=== PATIENT | female | born 1975 | race Two or more races ===

== ENCOUNTER 2019-03-02 11:27 | Day surgery (SDC) | payer BC ==
[~2019-03-02 11:27] MED LIST: Lactated Ringers 1,000 ML IV SCH
--- NOTE | 2019-03-02 12:42 | PCM.PREANE ---
Preanesthetic Assessment - Anesthesia/Transfusion/Family Hx Anesthesia History: Prior Anesthesia Without Reaction Family History of Anesthesia Reaction: No Transfusion History: Prior Transfusion Without Reaction - Review of Systems General: No Symptoms Pulmonary: No Symptoms Cardiovascular: No Symptoms Gastrointestinal: No Symptoms Neurological: No Symptoms Other: Reports: None - Physical Assessment O2 Sat by Pulse Oximetry: 98 Respiratory Rate: 16 Vital Signs: Last Vital Signs Temp 98.8 F 03/02/19 12:36 Pulse 89 03/02/19 12:36 Resp 16 03/02/19 12:36 BP 108/69 03/02/19 12:36 Pulse Ox 98 03/02/19 12:36 Height: 5 ft 2 in Weight: 65.317 kg ASA Class: 2 Mental Status: Alert & Oriented x3 Airway Class: Mallampati = 2 Dentition: Reports: Normal Dentition ROM/Head Extension: Full Lungs: Clear to Auscultation, Normal Respiratory Effort Cardiovascular: Regular Rate, Regular Rhythm - Lab Values: Laboratory Last Values Urine HCG, Qual NEGATIVE (NEGATIVE) 03/02/19 11:50 - Allergies Allergies/Adverse Reactions: Allergies Allergy/AdvReac Type Severity Reaction Status Date / Time No Known Allergies Allergy Verified 03/02/19 12:31 - Blood Blood Available: No - Anesthesia Plan Pre-Op Medication Ordered: None - Acknowledgements Anesthesia Type Planned: General Anesthesia Pt an Appropriate Candidate for the Planned Anesthesia: Yes Alternatives and Risks of Anesthesia Discussed w Pt/Guardian: Yes Pt/Guardian Understands and Agrees with Anesthesia Plan: Yes Additional Comments: anes prob list: thrombophilia, gerd, IBS, migraine, asthma PLAN: tiva PreAnesthesia Questionnaire HEENT History: Reports: Other (See Below) Other HEENT History: has some trouble with night vision Cardiovascular History: Reports: Blood Clots/VTE/DVT Other Cardiovascular History: had a "small blood clot" in her right leg while on fertility drugs. Took anticoagulants for 3 weeks. Respiratory History: Reports: Asthma Other Respiratory History: has not used inhaler for 1 year Gastrointestinal History: Reports: PUD Genitourinary History: Reports: UTI, Recurrent Other Genitourinary History: last UTI was 4 months ago Neurological History: Reports: Concussion Hematologic History: Reports: Anemia - Past Surgical History GI Surgical History: Reports: Appendectomy, Colonoscopy Female Surgical History: Reports: Oophorectomy Other Female Surgeries/Procedures: right oopherectomy for ovarian cyst - SUBSTANCE USE Smoking Status *Q: Never Smoker Recreational Drug Use History: No - HOME MEDS Home Medications: Home Meds Albuterol [Ventolin HFA] 1 puff INH ASDIRECTED PRN 02/24/19 [History] Gas X With Maalox 1 tab PO ASDIRECTED PRN 02/24/19 [History] Hydrocodone/Acetaminophen [Hydrocodon-Acetaminophen 5-325] 1 tab PO ASDIRECTED PRN 02/24/19 [History] Ibuprofen 400 mg PO ASDIRECTED PRN 02/24/19 [History] - CURRENT (IN HOUSE) MEDS Current Meds: Current Medications Lactated Ringer's (Ringers, Lactated) 1,000 mls @ 125 mls/hr IV ASDIRECTED JOSE Last Admin: 03/02/19 12:31 Dose: 125 mls/hr
[2019-03-02] MEDS ORDERED: Propofol 200 MG/20 ML SDV ONE (13:45)
--- NOTE | 2019-03-02 14:23 | PCM.OPNOTE ---
- General Post-Op/Procedure Note Date of Surgery/Procedure: 03/02/19 Operative Procedure(s): Colonoscopy Pre Op Diagnosis: Rectal bleeding Post-Op Diagnosis: Mild meyer colonic diverticulosis Anesthesia Technique: MAC (ASA II) Primary Surgeon: Dominik Ivan Condition: Good Free Text/Narrative:: DICTATION [id number] CPT CODE 52794
[2019-03-02] MEDS ORDERED: Lactated Ringers 1,000 ML IV SCH (14:30)
--- NOTE | 2019-03-02 15:22 | PCM.POSTAN ---
POST ANESTHESIA ASSESSMENT - MENTAL STATUS Mental Status: Alert, Oriented - RESPIRATORY Respiratory Status: Respiratory Rate WNL, Airway Patent, O2 Saturation Stable - CARDIOVASCULAR CV Status: Pulse Rate WNL, Blood Pressure Stable - GASTROINTESTINAL GI Status: No Symptoms - PAIN Free Text/Narrative:: crampy abd pain - POST OP HYDRATION Hydration Status: Adequate & Stable
[2019-03-02 15:39] VITALS: BP 121/81
--- NOTE | 2019-03-02 15:44 | PCM48HPAN ---
Post Anesthesia Note - EVALUATION WITHIN 48HRS OF ANESTHETIC Vital Signs in Normal Range: Yes Patient Participated in Evaluation: Yes Respiratory Function Stable: Yes Airway Patent: Yes Cardiovascular Function Stable: Yes Hydration Status Stable: Yes Pain Control Satisfactory: Yes Nausea and Vomiting Control Satisfactory: Yes Mental Status Recovered: Yes Pulse Rate: 80 SaO2: 97 Resp Rate: 16
--- NOTE | 2019-03-03 08:40 | OR ---
SURGEON: Dominik Ivan M.D. DATE OF PROCEDURE: 03/02/2019 OPERATION PERFORMED: Colonoscopy. ANESTHESIA: MAC. ASA CLASSIFICATION: II. PREOPERATIVE DIAGNOSIS: Rectal bleeding. POSTOPERATIVE DIAGNOSIS: Pancolonic diverticulosis. DESCRIPTION OF PROCEDURE: The patient was taken to the endoscopy room and positioned on the endoscopy table in the left lateral decubitus position. Time-out was called for appropriate identification of the patient and procedure. Monitored anesthesia care was provided. The colonoscope was inserted into the rectum and advanced with minimal difficulty to the cecum, where the colonoscope was retroflexed to visualize the ascending colon from below. The colonoscope was then straightened and slowly withdrawn. Scattered diverticula are noted throughout the entire length of the colon. The cecum, ascending colon, hepatic flexure, transverse colon, splenic flexure, descending colon, sigmoid colon, and rectum were very well visualized. No tumors, polyps, or angiodysplastic changes were noted. There was no evidence of inflammatory bowel disease. Once the colonoscope was withdrawn to the rectum, it was retroflexed to visualize the anal orifice from above. Again, no tumors or polyps were seen, and there are no acute hemorrhoidal changes. The colonoscope was then straightened, the rectum aspirated, and colonoscope removed. The patient tolerated the procedure well and was taken to recovery room in stable condition. CHARLENE MCDONOUGH /[id number]
== END 2019-03-02 15:55 | disposition home or self-care (01) ==
LOC: MW.SDS 11:27
PROVIDERS: ATTEND Surgery
DX: K57.30 Diverticulosis of large intestine without perforation or abscess without bleeding (principal); K80.20 Calculus of gallbladder without cholecystitis without obstruction; J45.909 Unspecified asthma, uncomplicated; Z87.19 Personal history of other diseases of the digestive system; Z79.899 Other long term (current) drug therapy; Z98.890 Other specified postprocedural states
CPT/HCPCS: 45378; 81025; J2001; J2704; J7120

== ENCOUNTER 2019-04-10 07:03 | Day surgery (SDC) | payer BC ==
[~2019-04-10 07:03] MED LIST changes: +cefOXitin 2 GM in Premix Bag 1 BAG IV ONE
[2019-04-10] MEDS ORDERED: Bupivacaine 0.5% 10 ML SDV ONE (07:21)
[2019-04-10] MEDS ORDERED: ceFAZolin 1 GM Vial ONE ×2 (07:21→13:38)
[2019-04-10] MEDS ORDERED: fentaNYL 250 MCG/5 ML SDV ONE (07:58)
[2019-04-10] MEDS ORDERED: Rocuronium 100 MG/10 ML Syringe ONE (07:58)
[2019-04-10] MEDS ORDERED: Propofol 200 MG/20 ML SDV ONE (07:58)
[2019-04-10] MEDS ORDERED: Lidocaine 2% 5 ML SDV ONE (07:58)
[2019-04-10] MEDS ORDERED: Scopolamine 1.5 MG Transdermal Patch TRDERM PRN (08:09)
[2019-04-10] MEDS ORDERED: Ondansetron 4 MG/2 ML SDV IVPUSH ONE (08:10)
--- NOTE | 2019-04-10 08:13 | PCM.PREANE ---
Preanesthetic Assessment - Anesthesia/Transfusion/Family Hx Anesthesia History: Prior Anesthesia Without Reaction Family History of Anesthesia Reaction: No Transfusion History: Prior Transfusion Without Reaction Intubation History: Unknown - Review of Systems General: No Symptoms Pulmonary: No Symptoms Cardiovascular: No Symptoms Gastrointestinal: Abdominal Pain, Nausea Neurological: No Symptoms Other: Reports: None - Physical Assessment Height: 5 ft 2 in Weight: 65.317 kg ASA Class: 2 Mental Status: Alert & Oriented x3 Airway Class: Mallampati = 2 Dentition: Reports: Normal Dentition Thyro-Mental Finger Breadths: 3 Mouth Opening Finger Breadths: 3 ROM/Head Extension: Full Lungs: Clear to Auscultation, Normal Respiratory Effort Cardiovascular: Regular Rate, Regular Rhythm - Allergies Allergies/Adverse Reactions: Allergies Allergy/AdvReac Type Severity Reaction Status Date / Time No Known Allergies Allergy Verified 04/08/19 09:51 - Blood Blood Available: No - Anesthesia Plan Pre-Op Medication Ordered: None - Acknowledgements Anesthesia Type Planned: General Anesthesia Pt an Appropriate Candidate for the Planned Anesthesia: Yes Alternatives and Risks of Anesthesia Discussed w Pt/Guardian: Yes Pt/Guardian Understands and Agrees with Anesthesia Plan: Yes PreAnesthesia Questionnaire HEENT History: Reports: Other (See Below) Other HEENT History: has some trouble with night vision Cardiovascular History: Reports: Blood Clots/VTE/DVT Other Cardiovascular History: had a "small blood clot" in her right leg while on fertility drugs. Took anticoagulants for 3 weeks. Respiratory History: Reports: Asthma Other Respiratory History: has not used inhaler for 1 year Gastrointestinal History: Reports: Cholelithiasis, Colon Polyp, Diverticulosis, GERD, PUD Genitourinary History: Reports: UTI, Recurrent Other Genitourinary History: last UTI was 4 months ago Neurological History: Reports: Concussion, Migraines (once a month) Hematologic History: Reports: Anemia - Past Surgical History GI Surgical History: Reports: Appendectomy, Colonoscopy Female Surgical History: Reports: Oophorectomy, Other (See Below) Other Female Surgeries/Procedures: hx of laparoscopy, laparotomy for rt. ovarian tumor removal - SUBSTANCE USE Smoking Status *Q: Never Smoker - HOME MEDS Home Medications: Home Meds Albuterol [Ventolin HFA] 1 puff INH ASDIRECTED PRN 02/24/19 [History] Ibuprofen 400 mg PO ASDIRECTED PRN 02/24/19 [History] Ascorbate Calcium [Vitamin C] 500 mg PO DAILY 04/08/19 [History] - CURRENT (IN HOUSE) MEDS Current Meds: Current Medications Lactated Ringer's (Ringers, Lactated) 1,000 mls @ 125 mls/hr IV ASDIRECTED JOSE Discontinued Medications Bupivacaine HCl (Sensorcaine-Mpf 0.5%) Confirm Administered Dose 30 ml .ROUTE .STK-MED ONE Stop: 04/10/19 07:22 Cefazolin Sodium (Ancef) Confirm Administered Dose 1 gm .ROUTE .STK-MED ONE Stop: 04/10/19 07:22 Fentanyl (Sublimaze) Confirm Administered Dose 250 mcg .ROUTE .STK-MED ONE Stop: 04/10/19 07:59 Cefoxitin Sodium 2 gm/ Premix 50 mls @ 100 mls/hr IV ONETIME ONE Stop: 04/10/19 06:29 Lidocaine (Xylocaine-Mpf 2%) Confirm Administered Dose 5 ml .ROUTE .STK-MED ONE Stop: 04/10/19 07:59 Propofol (Diprivan 20 Ml) Confirm Administered Dose 200 mg .ROUTE .STK-MED ONE Stop: 04/10/19 07:59 Rocuronium Comstock (Zemuron) Confirm Administered Dose 100 mg .ROUTE .STK-MED ONE Stop: 04/10/19 07:59
[2019-04-10] MEDS ORDERED: cefOXitin 1 GM Vial ONE (08:46)
[2019-04-10] MEDS ORDERED: Sodium Chloride 0.9% 20 ML ONE (08:46)
[2019-04-10] MEDS ORDERED: Ondansetron 4 MG/2 ML SDV ONE (09:45)
[2019-04-10] MEDS ORDERED: Dexamethasone 4 MG/ML 5 ML MDV ONE (09:45)
[2019-04-10] MEDS ORDERED: Morphine 10 MG/ML Syringe ONE (10:02)
[2019-04-10] MEDS ORDERED: Glycopyrrolate 0.2 MG/ML SDV ONE (10:05)
[2019-04-10] MEDS ORDERED: Neostigmine Methylsulfate 1 MG/ML 5 ML Syringe ONE (10:05)
[2019-04-10] MEDS ORDERED: EPINEPHrine 1:10,000 1 MG/10 ML Syringe IVPUSH PRN (10:23)
[2019-04-10] MEDS ORDERED: Naloxone 0.4 MG/ML Syringe IVPUSH PRN (10:23)
[2019-04-10] MEDS ORDERED: Albuterol 0.083% 2.5 MG/3 ML Neb Soln NEB PRN (10:23)
[2019-04-10] MEDS ORDERED: fentaNYL 100 MCG/2 ML SDV IVPUSH PRN (10:23)
[2019-04-10] MEDS ORDERED: 50% Dextrose in Water 50 ML Syringe IVPUSH PRN (10:23)
[2019-04-10] MEDS ORDERED: Atropine 0.1 MG/ML 10 ML Syringe IVPUSH PRN ×2 (10:23)
[2019-04-10] MEDS ORDERED: Albuterol 6.7 GM Inhaler INH ONE (10:28)
[2019-04-10] MEDS ORDERED: Acetaminophen/HYDROcodone 325-5 MG Tab PO PRN (10:40)
[2019-04-10] MEDS ORDERED: Morphine 10 MG/ML Syringe IVPUSH PRN (10:40)
--- NOTE | 2019-04-10 10:44 | PCM.OPNOTE ---
- General Post-Op/Procedure Note Date of Surgery/Procedure: 04/10/19 Operative Procedure(s): Laparoscopic cholecystectomy Pre Op Diagnosis: Symptomatically cholelithiasis Post-Op Diagnosis: Cholelithiasis with chronic cholecystitis Anesthesia Technique: General ET Tube (ASA II) Primary Surgeon: Dominik Ivan Fluid Replacement, Intraop: 1,500 Output, Urine Amount: 75 EBL in mLs: 10 Condition: Good Free Text/Narrative:: DICTATION [id number] CPT CODE 09616
[2019-04-10] MEDS ORDERED: Lactated Ringers 1,000 ML IV SCH (10:45)
[2019-04-10] MEDS ORDERED: Ketorolac 30 MG/ML SDV IVPUSH ONE (10:54)
[2019-04-10] MEDS ORDERED: Acetaminophen 1,000 MG in Premix Bag 1 BAG IV ONE (11:44)
--- NOTE | 2019-04-10 13:05 | OR ---
SURGEON: Dominik Ivan M.D. DATE OF PROCEDURE: 04/10/2019 OPERATION PERFORMED: Laparoscopic cholecystectomy. PRIMARY SURGEON: Dominik Ivan MD. ANESTHESIA: General endotracheal. ASA CLASSIFICATION: II. PREOPERATIVE DIAGNOSIS: Symptomatic cholelithiasis. POSTOPERATIVE DIAGNOSIS: Cholelithiasis with cholecystitis. ESTIMATED BLOOD LOSS: 10 mL. INTRAOPERATIVE FLUID REPLACEMENT: 1500 mL of crystalloid. INTRAOPERATIVE URINARY OUTPUT: 75 mL. DESCRIPTION OF PROCEDURE: The patient was taken to the operating room and placed on the operating table in the supine position. Time-out was called for appropriate identification of the patient and procedure. Thigh-high TEDs and sequential compression boots were placed. Following satisfactory attainment of general endotracheal anesthesia, a Roe catheter was placed in the patient's urinary bladder. The abdomen was prepped with DuraPrep solution. Sterile drapes were applied. The skin just below the umbilicus was infiltrated with 0.5% Marcaine solution. The skin incision was made and deepened through the subcutaneous tissue obtaining hemostasis with the use of electrocautery. The Veress needle was introduced into the peritoneal cavity. The saline drop test was positive. Carbon dioxide pneumoperitoneum was established with the relief set at 13 cm of water. Once a satisfactory pneumoperitoneum was established, 5 mm camera port was placed through the infraumbilical incision. The patient was now positioned with her feet down and rolled to the left. Under camera vision, 12 mm subxiphoid, 5 mm midclavicular, and 5 mm anterior axillary ports were placed. Each incision had preemptively been infiltrated with 0.5% Marcaine solution. The gallbladder was grasped, adhesions were taken down, and the cholecystohepatic triangle was dissected free. The cystic duct and cystic artery were individually dissected free and critical view of each structure was obtained prior to hemoclipping and division with laparoscopic Metzenbaum scissors. Once that was accomplished, the gallbladder was dissected away from its bed using electrocautery. Small bleeding sites were electrocoagulated. There was a little bile spill, but no significant stones were spilled. Once the gallbladder was amputated, this was placed in an Endopouch and maintained in the peritoneal cavity. The right upper quadrant was inspected for hemostasis and small bleeding sites were electrocoagulated. I did not see any significant bile leak. The bed of the gallbladder was then covered with Surgicel. The right upper quadrant was irrigated with 250 mL of saline containing 20 mL of 0.5% Marcaine solution. That fluid was left in place. The Endo Catch containing gallbladder was now removed through the subxiphoid incision removing the trocar at the same time. Under camera vision, the 5 mm midclavicular and anterior axillary ports were removed and finally the infraumbilical camera and port were removed. The wounds were inspected for hemostasis and small bleeding sites were electrocoagulated. The subxiphoid and infraumbilical incisions were closed in 2 layers approximating the subcutaneous tissue with 3-0 Vicryl and the skin with subcuticular 4-0 Monocryl. The anterior axillary and midclavicular incisions were closed with subcuticular 4-0 Monocryl. All incisions were Steri-Stripped and dressed with sterile Tegaderm pads. Sponge, needle, and instrument counts were all correct. Prior to emergence from anesthesia, the Roe catheter was removed. Following emergence from anesthesia and extubation, the patient was taken to recovery room in satisfactory condition. CHARLENE MCDONOUGH /[id number]
[2019-04-10] MEDS ORDERED: Bupivacaine 0.5% 30 ML SDV ONE (13:39)
[2019-04-10 14:39] VITALS: PULSE 84
[2019-04-10 14:40] VITALS: BP 116/63
== END 2019-04-10 15:55 | disposition home or self-care (01) ==
LOC: MW.SDS 07:03
PROVIDERS: ATTEND Surgery
DX: K80.10 Calculus of gallbladder with chronic cholecystitis without obstruction (principal); D13.5 Benign neoplasm of extrahepatic bile ducts; J45.909 Unspecified asthma, uncomplicated; K62.5 Hemorrhage of anus and rectum; Z79.899 Other long term (current) drug therapy
CPT/HCPCS: 47562; 81025; 88304; A9270; J0131; J0694; J1100; J1885; J2001; J2270; J2405; J2704; J3010; J3490; J7120; 00790; J0690